=== PATIENT | male | born 1980 | race Caucasian/White ===

== ENCOUNTER 2022-10-16 16:33 | Emergency (ER) | payer SELFPAY ==
[2022-10-16 16:46] VITALS: BP 144/88; PULSE 79; RESP 18; TEMP 36.4; O2SAT 98
[2022-10-16 16:47] VITALS: BP 144/88; PULSE 79; RESP 18; TEMP 36.4; O2SAT 98
--- NOTE | 2022-10-16 17:11 | ED.URI ---
HPI - URI/Sore Throat General Chief Complaint: Upper Respiratory Infection Stated Complaint: sorethroat Time Seen by Provider: 10/16/22 16:38 Source: patient Mode of arrival: ambulatory Limitations: no limitations History of Present Illness HPI Narrative: 42-year-old male presents to [facility] with complaints of sore throat, hoarse voice, cough and congestion for the past week. Patient reports he feels that his sore throat has been worsening. Patient has been taking [id number] Motrin and Tylenol with minimal relief. Patient denies fever, body aches, chills, nausea, vomiting or diarrhea. Patient is also requesting a refill of his Lexapro 10 mg. Patient reports he was released from detention in August and was given a 45 day refill at that time and is in a process of getting established with a local primary care provider. Veriied dose of medication with [facility] elicited complaint: sore throat, rhinorrhea and nasal congestion Onset (ago): day(s) Description of mucous: clear Able to tolerate fluids by mouth: Yes Exacerbating factors: nothing Treatments prior to arrival: ibuprofen Related Data Home Medications Medication Instructions Recorded Confirmed escitalopram oxalate 10 mg tablet 10 mg PO DAILY 10/16/22 10/16/22 (Lexapro) Allergies Allergy/AdvReac Type Severity Reaction Status Date / Time cephalexin [From Keflex] Allergy Mild Rash Verified 10/16/22 16:57 Cephalosporins Allergy Mild RASH/NAUSEA Unverified 10/16/22 16:57 /VOMITING Review of Systems Constitutional: Constitutional: Denies chills, Denies fatigue, Denies fever(s) and Denies weakness ENT: Denies vertigo, Denies dizziness, Reports nasal congestion and Reports sore throat Cardiovascular: Cardiovascular: Denies chest pain Respiratory: Respiratory: Denies cough, Denies dyspnea and Denies wheezing Gastrointestinal: Gastrointestinal: Denies diarrhea, Denies nausea and Denies vomiting Integumentary/Breasts: Skin/Breast: Denies rash Allergic/Immunologic: Allergic/Immunologic: Denies throat swelling, Denies tongue swelling and Denies wheezing PMFSH Comments At time of signature, I agree with nursing past medical, surgical, social and family history. There is no relevant family history pertinent to the presenting complaint. Exam Const: General: healthy appearing and no acute distress Nutritional Appearance: well nourished Orientation/consciousness: patient oriented x3 Limitations: no limitations HENMT: Head: normal to inspection Ears: external ears normal and TM's normal bilaterally Face/Nose/Sinus: Normal external nose present and Normal nares present Face and sinus: normal facial exam Mouth: Yes Normal oral and palatal mucosa present, Yes lip normal and Yes moist mucous membranes Teeth and gingiva: dentition normal and abnormal tooth and associated gingiva Throat: uvula midline Other: Moderate erythema and exudate noted to posterior pharynx Eyes: Conjunctivae: conjunctivae normal Neck: Neck: normal visual inspection Resp: Effort & Inspection: normal respiratory effort Auscultation: clear to auscultation bilaterally, no crackles, no rales, no rhonchi and no wheezes Cardio: Rate: regular rate Rhythm: regular rhythm Heart sounds: no murmurs Skin: General skin exam: normal color Rashes: no rashes Wounds: no wounds Neuro: General: patient oriented x3 Speech: normal speech Extrem: General: normal to inspection Psych: Affect: normal affect Attitude: cooperative Course Course Level of Care: Express Care Visit Vital Signs Vital signs: Vital Signs Temperature 36.4 C 10/16/22 16:46 Pulse Rate 79 10/16/22 16:46 Respiratory Rate 18 10/16/22 16:46 Blood Pressure 144/88 H 10/16/22 16:46 Pulse Oximetry 98 10/16/22 16:46 Oxygen Delivery Room Air 10/16/22 16:46 Temperature 36.4 C 10/16/22 16:47 Pulse Rate 79 10/16/22 16:47 Respiratory Rate 18 10/16/22 16:47 Blood Pressure
== END 2022-10-16 17:25 | disposition home or self-care (01) ==
PROVIDERS: Emergency Provider Nurse Practitioner Family
DX: J02.9 Acute pharyngitis, unspecified (principal); F41.9 Anxiety disorder, unspecified
CPT/HCPCS: 87081; 87880; 99203; G0463